=== PATIENT | female | born 1990 | race Caucasian/White ===

== ENCOUNTER 2019-08-08 19:09 | Emergency (ER) | payer MEDICAID ==
[~2019-08-08] VITALS: Ht 152.4 cm; Wt 104.3 kg
[2019-08-08 19:29] VITALS: BP 108/67
--- NOTE | 2019-08-08 19:29 | NUR ---
ED Nurse Note: Patient walked in to ER due to lower back pain radiating to BLE x2 yrs but progressively worsening in past 2 wks. Has hx of PCOS, chronic kidney stones, S/P Fall a year ago, and migraine. Alert and oriented. verbally responsive. Breathing even and unlabored. Afebrile. VSS. Friend at bedside.
[2019-08-08] MEDS ORDERED: Ketorolac 30mg Inj IM ONE (19:45)
[2019-08-08] MEDS ORDERED: Methocarbamol 500mg tab ORAL ONE (19:45)
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
[2019-08-08 20:13] LABS: APPEARANCE,URINE SLIGHTLY CLOUDY; BILIRUBIN, URINE NEGATIVE (NEGATIVE); GLUCOSE, URINE (UA) NEGATIVE (NEGATIVE); KETONES,URINE NEGATIVE (NEGATIVE); LEUKOCYTE ESTERASE ,URINE 3+ (NEGATIVE); NITRITE,URINE NEGATIVE (NEGATIVE); PH,URINE 6 (4.5-8.0); PROTEIN,URINE 1+ (NEGATIVE); UROBILINOGEN,URINE NORMAL MG/DL (0.0-1.0)
[2019-08-08 20:17] LABS: COLOR,URINE YELLOW
--- NOTE | 2019-08-08 20:45 | NUR ---
ED Nurse Note: Went down to CT.
--- NOTE | 2019-08-08 20:57 | NUR ---
ED Nurse Note: Came back from CT.
--- NOTE | 2019-08-08 21:40 | NUR ---
ED Nurse Note: Patient seen sitting on bed. Alert and oriented, verbally responsive. Breathing even. Friend at bedside. No new order at this time.
--- NOTE | 2019-08-08 21:51 | Diagnostic Imaging Report ---
EXAM: CT Lumbar Spine Without Intravenous Contrast CLINICAL HISTORY: PAIN TECHNIQUE: Axial computed tomography images of the lumbar spine without intravenous contrast. CTDI is 44.95 mGy and DLP is 1676 mGy-cm. One or more of the following dose reduction techniques were used: automated exposure control, adjustment of the mA and or kV according to patient size, use of iterative reconstruction technique. COMPARISON: none FINDINGS: Vertebrae: Unremarkable. No acute fracture. Discs spinal canal neural foramina: No acute findings. No spinal canal stenosis. Soft tissues: Unremarkable. Kidneys and ureters: Incidental bilateral nonobstructing renal stones. IMPRESSION: 1. No acute findings in the lumbar spine on unenhanced CT. 2. Probably incidental bilateral punctate renal stones.
[2019-08-08 22:07] VITALS: BP 110/71
[2019-08-08] MEDS ORDERED: ROBAXIN-500MG ORAL (22:22)
[2019-08-08] MEDS ORDERED: KETOROLAC TROME10 MG PO (22:22)
[2019-08-08 22:25] VITALS: BP 110/71
--- NOTE | 2019-08-08 22:25 | NUR ---
ED Nurse Note: Pt cleared by ERMD for discharge. DC instructions/prescription was given and explained to pt and verbalized understanding of teachings. All medical deviecs such as ID band removed. Pt is AAO x4, ambulatory and left with all personal belongings. Prescription was sent to pharmacy of choice. Accompanied by a friend.
== END 2019-08-08 22:25 | disposition home or self-care (01) ==
LOC: EMR 22:10
DX: N20.0 Calculus of kidney (principal); M62.838 Other muscle spasm; M54.5 Low back pain; Z87.442 Personal history of urinary calculi; J45.909 Unspecified asthma, uncomplicated
CPT/HCPCS: 72131; 81001; 81025; 96372; J1885; Z7502; 99284

== ENCOUNTER 2019-09-07 10:50 | Emergency (ER) | payer MEDICAID ==
[~2019-09-07] VITALS: Ht 152.4 cm; Wt 99.8 kg
[~2019-09-07 10:50] MED LIST: KETOROLAC TROME10 MG PO; ROBAXIN-500MG ORAL
[2019-09-07 10:54] VITALS: BP 119/92
[2019-09-07] MEDS ORDERED: GABAPENTIN800 MG ORAL (11:14)
--- NOTE | 2019-09-07 11:14 | Emergency Room Report ---
History of Present Illness General Chief Complaint: Pain Source: Patient Present Illness HPI 29-year-old female presents with chronic right-sided lumbar pain that radiates down her right leg, no bowel bladder retention/incontinence, no focal weakness, no perianal numbness, symptoms have been ongoing for months, no fever no chills , no history of IV drug use, patient presents for evaluation. She describes the pain as sharp shooting, aggravated with certain positions and movement, alleviated by rest severity is severe lasting minutes. Allergies: Coded Allergies: No Known Allergies (Unverified , 08/08/19) Patient History Past Medical History: see triage record Last Menstrual Period: 08/2019 Now: No Reviewed Nursing Documentation: PMH: Agreed; PSxH: Agreed Nursing Documentation-PMH Past Medical History: No History, Except For Hx Asthma: Yes Review of Systems All Other Systems: negative except mentioned in HPI Physical Exam Vital Signs Date Time Temp Pulse Resp B/P (MAP) Pulse Ox O2 Delivery O2 Flow Rate FiO2 09/07/19 10:54 98.1 86 16 119/92 95 Room Air General Appearance: well appearing, no apparent distress Head: normocephalic, atraumatic ENT: hearing grossly normal, normal voice Neck: full range of motion, supple Respiratory: no respiratory distress, speaking full sentences Musculoskeletal: gait/station normal, other - 5 out of 5 plantar dorsiflexion of the foot, at the knee, hip, straight leg raise positive, no midline back tenderness, lateral tenderness, right gluteal tenderness Neurologic: alert, normal gait Psychiatric: mood/affect normal Skin: no rash Medical Decision Making Diagnostic Impression: Primary Impression: Sciatic leg pain ER Course 29-year-old female resents with sciatic leg pain The patient presents with right side back pain and sciatic leg pain. Clinically this patient can be ruled out for serious pathology given there is a completely normal neurological exam, no history of IV drug use, and no history of bowel or bladder incontinence, no perianal numbness/tingling, no constipation or urinary retention. Once the patient's pain was adequately controlled, the patient was able to ambulate and be discharged in stable condition with anticipatory guidance provided. Patient reports she takes gabapentin which tends to help, will start gabapentin. Last Vital Signs Date Time Temp Pulse Resp B/P (MAP) Pulse Ox O2 Delivery O2 Flow Rate FiO2 09/07/19 10:54 98.1 86 16 119/92 (101) 95 Room Air Disposition: HOME, SELF-CARE Condition: Stable Scripts Gabapentin* (GABAPENTIN*) 800 Mg Tablet 800 MG ORAL BID, #90 TAB Prov: Mayito Willis MD 09/07/19 [address]errals: [facility] Patient Instructions: Sciatica With Rehab[facility], Sciatica, [id number] Additional Instructions: The patient was provided with discharge instructions, notified to follow-up with a primary care doctor and or specialist in the next 24-48 hours, and to return to the ED if they have worsening of their symptoms. Please note that this report is being documented using DRAGON technology. This can lead to erroneous entry secondary to incorrect interpretation by the dictating instrument. Mayito Willis MD Sep 07, 2019 11:14
--- NOTE | 2019-09-07 11:35 | NUR ---
ER DISCHARGE NOTE: Patient is cleared to be discharged per ERMD, pt is aox4, on room air, with stable vital signs. pt was given dc and prescription instructions, pt was able to verbalize understanding, pt is able to ambulate with steady gait. pt took all belongings.
[2019-09-07 11:39] VITALS: BP 119/92
== END 2019-09-07 11:41 | disposition home or self-care (01) ==
LOC: EMR 11:15
DX: M54.41 Lumbago with sciatica, right side (principal); J45.909 Unspecified asthma, uncomplicated
CPT/HCPCS: 81025; Z7502; 99282

== ENCOUNTER 2020-01-08 11:01 | Emergency (ER) | payer SELFPAY ==
[~2020-01-08] VITALS: Ht 152.4 cm; Wt 99.8 kg
[~2020-01-08 11:01] MED LIST changes: +GABAPENTIN800 MG ORAL
[2020-01-08 11:23] VITALS: BP 133/85
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
[2020-01-08 12:57] VITALS: BP 133/85
--- NOTE | 2020-01-08 12:57 | NUR ---
ER DISCHARGE NOTE: Patient is cleared to be discharged per ERMD, pt is aox4, on room air, with stable vital signs. pt was given dc and prescription instructions, pt was able to verbalize understanding, pt id band removed. pt is able to ambulate with steady gait. pt took all belongings.
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
== END 2020-01-08 12:57 | disposition home or self-care (01) ==
LOC: EMR 12:15
DX: S09.90XA Unspecified injury of head, initial encounter (principal); Y04.2XXA Assault by strike against or bumped into by another person, initial encounter; Y92.9 Unspecified place or not applicable
CPT/HCPCS: 70450; 99284